=== PATIENT | female | born 1995 | race Caucasian/White ===

== ENCOUNTER 2022-03-13 20:35 | Inpatient (IN) | payer BC, OTHER ==
[~2022-03-13] VITALS: Ht 157.5 cm; Wt 89.4 kg
[2022-03-13] MEDS ORDERED: 0.9%NACL 1000ML 1,000 ML IV ONE (21:00)
[2022-03-13] MEDS ORDERED: ACETYLCYSTEINE IV ONE ×6 (21:00→23:30)
[2022-03-13] MEDS ORDERED: WATER IV ONE ×6 (21:00→23:30)
[2022-03-13] MEDS ORDERED: DEXTROSE 5% IV ONE ×4 (21:00→23:30)
[2022-03-13 21:10] LABS: BASOPHILS % (AUTO) 1.3 % (0.0-5.0); EOSINOPHILS % (AUTO) 0.8 % (0.0-8.0); HEMATOCRIT 46.1 % (36-48); LYMPHOCYTES % (AUTO) 23.6 % (21.0-51.0); MEAN CORPUSCULAR HEMOGLOBIN 32.2 pg (27.0-33.0); MEAN CORPUSCULAR HGB CONC 34.3 g/dL (32.0-36.0); MEAN CORPUSCULAR VOLUME 93.9 fL (79-99); MONOCYTES % (AUTO) 8.4 % (3.0-13.0); NEUTROPHILS % (AUTO) 65.6 % (40.0-77.0); PLATELET COUNT (AUTO) 375 K/uL (130-400); RED BLOOD CELL COUNT(AUTO) 4.91 MIL/uL (4.00-5.50); WHITE BLOOD COUNT (AUTO) 7.2 K/uL (4.8-10.8)
[2022-03-13 21:22] LABS: APPEARANCE,URINE CLEAR (CLEAR); BILIRUBIN,URINE NEGATIVE (NEGATIVE); COLOR,URINE LIGHT-YELLOW (YELLOW); GLUCOSE, URINE (UA) NEGATIVE (NEGATIVE); KETONES,URINE 5 mg/dL (NEGATIVE); LEUKOCYTE ESTERASE ,URINE NEGATIVE Leu/uL (NEGATIVE); NITRATE,URINE NEGATIVE (NEGATIVE); OCCULT BLOOD,URINE NEGATIVE (NEGATIVE); PROTEIN,URINE NEGATIVE (NEGATIVE); UROBILINOGEN,URINE 0.2 mg/dL (0.2-1.0)
[2022-03-13 21:23] LABS: CARBON DIOXIDE 24 mmol/L (21-32); CHLORIDE 102 mmol/L (101-111); CREATININE 0.8 mg/dL (0.5-1.5); GLOMERULAR FILTR. RATE CALC 91 mL/min (>60); GLUCOSE,RANDOM 93 mg/dL (70-105); POTASSIUM 3.3 mmol/L (3.5-5.1); SODIUM SERUM 141 mmol/L (136-145); UREA NITROGEN, BLOOD 11 mg/dL (7-18)
[2022-03-13 21:34] LABS: ALANINE AMINOTRANSFERASE 38 U/L (12-78); ALBUMIN 4.1 g/dL (3.5-5.0); ALCOHOL, BLOOD 196 mg/dL (0-10); ASPARTATE AMINOTRANSFERASE 29 U/L (10-37); CREATINE KINASE, TOTAL 60 U/L (21-232); TOTAL PROTEIN, SERUM 8.3 g/dL (6.0-8.3)
[2022-03-13 21:41] LABS: SALICYLATE < 2.8 mg/dL (2.8-20.0)
[2022-03-13 21:42] LABS: ACETAMINOPHEN 200 mcg/mL (10-30)
[2022-03-13 22:16] LABS: PROTHROMBIN TIME 10.9 SEC (9.6-11.6)
[2022-03-13 22:17] LABS: PARTIAL THROMBOPLASTIN TIME 28.1 SEC (26.3-35.5)
[2022-03-13] MEDS ORDERED: ACETYLCYSTEINE 6000 MG/30 ML IV SCH (22:30)
[2022-03-13] MEDS ORDERED: POTASSIUM CHLORIDE 20MEQ/10ML 10 MEQ in 0.9%NACL 50ML 50 ML IV SCH (22:30)
[2022-03-13] MEDS ORDERED: PHYTONADIONE 10 MG/1 ML AMP SQ ONE (22:30)
[2022-03-13] MEDS ORDERED: ONDANSETRON 4MG INJ ONE (22:38)
[2022-03-13] MEDS ORDERED: PHARMACY COMMUNICATION MISC PRN (23:00)
[2022-03-13] MEDS ORDERED: NITROGLYCERIN 0.4 MG SL TAB SL PRN (23:00)
[2022-03-13] MEDS ORDERED: CHLORDIAZEPOXIDE HCL 25 MG CAP PO PRN ×2 (23:00)
[2022-03-13] MEDS ORDERED: ONDANSETRON 4MG INJ IV PRN (23:00)
[2022-03-13] MEDS ORDERED: ACETAMINOPHEN 325 MG TAB PO PRN ×2 (23:00)
[2022-03-13] MEDS ORDERED: [UNRECOGNIZED DRUG - OTHER] IV STA (23:00)
[2022-03-13] MEDS ORDERED: LORAZEPAM 2 MG/ML 1 ML VIAL IVP PRN ×2 (23:00)
[2022-03-13] MEDS ORDERED: ACETYLCYSTEINE 20% 200MG/ML 30ML VIAL ONE (23:08)
[2022-03-13] MEDS ORDERED: ACETYLCYSTEINE 10% 100MG/ML 4ML VIAL ONE (23:11)
[2022-03-13 23:12] LABS: AMPHET/METH SCREEN,URINE NEGATIVE (NEGATIVE); BARBITURATE SCREEN, URINE NEGATIVE (NEGATIVE); BENZODIAZEPINES SCREEN,URINE NEGATIVE (NEGATIVE); COCAINE SCREEN,URINE NEGATIVE (NEGATIVE); PHENCYCLIDINE SCREEN,URINE NEGATIVE (NEGATIVE)
[2022-03-13 23:14] LABS: CANNABINOID SCREEN,URINE POSITIVE (NEGATIVE)
[2022-03-13] MEDS ORDERED: DEXTROSE 10% IV ONE ×2 (23:30)
[2022-03-13] MEDS: PHARMACY COMMUNICATION MISC SCH (23:30)
[2022-03-13] MEDS ORDERED: PHARMACY COMMUNICATION MISC SCH (23:45)
[2022-03-13] MEDS ORDERED: POTASSIUM CHLORIDE 20MEQ/100ML 0 ML IV ONE (23:47)
[2022-03-13] MEDS ORDERED: POTASSIUM CHLORIDE 10MEQ/100ML 100 ML IV ONE (23:50)
[2022-03-14] MEDS ORDERED: PROMETHAZINE HCL 25 MG/ML 1ML AMPULE IM PRN
[2022-03-14] MEDS ORDERED: 0.9%NACL 1000ML 1,000 ML IV SCH
[2022-03-14] MEDS ORDERED: THIAMINE HCL 100 MG/ML 2ML VIAL ONE (00:09)
[2022-03-14] MEDS ORDERED: M.V.I. IV [ADULT] 10 ML VIAL IV ONE (00:10)
[2022-03-14] MEDS ORDERED: FOLIC ACID 5 MG/ML VIAL ONE (00:11)
[2022-03-14] MEDS: THIAMINE HCL 100 MG, FOLIC ACID 1 MG, M.V.I. IV [ADULT] 10 ML in 0.9%NACL 1000ML 1,000 ML IV SCH ×2 (00:19→22:16)
[2022-03-14] MEDS: 0.9%NACL 1000ML 1,000 ML IV SCH ×2 (01:04→07:33)
[2022-03-14] MEDS: PHARMACY COMMUNICATION MISC SCH ×7 (01:30→13:40)
[2022-03-14] MEDS ORDERED: ACETYLCYSTEINE 20% 200MG/ML 30ML VIAL ONE (02:49)
[2022-03-14] MEDS ORDERED: DEXTROSE 5% IV ONE ×4 (04:00)
[2022-03-14] MEDS ORDERED: ACETYLCYSTEINE IV ONE ×4 (04:00)
[2022-03-14] MEDS ORDERED: WATER IV ONE ×4 (04:00)
[2022-03-14 06:34] LABS: BASOPHILS % (AUTO) 0.7 % (0.0-5.0); EOSINOPHILS % (AUTO) 0.1 % (0.0-8.0); HEMATOCRIT 37.4 % (36-48); LYMPHOCYTES % (AUTO) 7.2 % (21.0-51.0); MEAN CORPUSCULAR HGB CONC 33.4 g/dL (32.0-36.0); MEAN CORPUSCULAR VOLUME 95.7 fL (79-99); MONOCYTES % (AUTO) 5.2 % (3.0-13.0); NEUTROPHILS % (AUTO) 86.5 % (40.0-77.0); PLATELET COUNT (AUTO) 270 K/uL (130-400); RED BLOOD CELL COUNT(AUTO) 3.91 MIL/uL (4.00-5.50); WHITE BLOOD COUNT (AUTO) 11.5 K/uL (4.8-10.8)
[2022-03-14 07:04] LABS: ALBUMIN 2.7 g/dL (3.5-5.0); CREATININE 0.6 mg/dL (0.5-1.5); MAGNESIUM 1.5 mg/dL (1.80-2.40); PHOSPHORUS 3.4 mg/dL (2.5-4.9); POTASSIUM 3.7 mmol/L (3.5-5.1)
[2022-03-14 07:27] LABS: INR 1.08 (0.85-1.15); PROTHROMBIN TIME 11.7 SEC (9.6-11.6)
[2022-03-14 07:29] LABS: PARTIAL THROMBOPLASTIN TIME 27.8 SEC (26.3-35.5)
[2022-03-14] MEDS: FAMOTIDINE 20MG TAB PO SCH ×2 (08:55→20:19)
[2022-03-14] MEDS: ENOXAPARIN SODIUM 40 MG/0.4 ML SYRINGE SQ SCH (08:55)
[2022-03-14 13:32] LABS: ALBUMIN 2.8 g/dL (3.5-5.0); CREATININE 0.7 mg/dL (0.5-1.5); MAGNESIUM 1.4 mg/dL (1.80-2.40); POTASSIUM 3.2 mmol/L (3.5-5.1); TOTAL PROTEIN, SERUM 6.1 g/dL (6.0-8.3)
[2022-03-14 13:44] LABS: HEMOGLOBIN A1C 5.2 % (4.0-6.0)
[2022-03-14] MEDS ORDERED: CETI10TA87 PO (16:32)
[2022-03-14 16:56] VITALS: BP 147/97
[2022-03-14] MEDS ORDERED: HYDROXYZINE 25 MG TABLET PO PRN (17:00)
[2022-03-14 17:14] LABS: INR 1.01 (0.85-1.15)
[2022-03-14 17:15] LABS: PARTIAL THROMBOPLASTIN TIME 30.3 SEC (26.3-35.5)
[2022-03-14 17:30] LABS: ALANINE AMINOTRANSFERASE 25 U/L (12-78); ASPARTATE AMINOTRANSFERASE 18 U/L (10-37); CARBON DIOXIDE 20 mmol/L (21-32); CHLORIDE 106 mmol/L (101-111); CREATININE 0.7 mg/dL (0.5-1.5); GLOMERULAR FILTR. RATE CALC 107 mL/min (>60); GLUCOSE,RANDOM 84 mg/dL (70-105); POTASSIUM 3.2 mmol/L (3.5-5.1); SODIUM SERUM 137 mmol/L (136-145); TOTAL PROTEIN, SERUM 6.3 g/dL (6.0-8.3); UREA NITROGEN, BLOOD 7 mg/dL (7-18)
[2022-03-14 17:33] LABS: ACETAMINOPHEN < 1 mcg/mL (10-30)
[2022-03-14] MEDS ORDERED: POTASSIUM CHLORIDE 10% ELIXIR 20 MEQ/15 ML UDCUP PO PRN (18:00)
[2022-03-14] MEDS ORDERED: POTASSIUM CHLORIDE 20MEQ/100ML 100 ML IV PRN (18:00)
[2022-03-14] MEDS: KCL 20 MEQ ERTAB PO PRN ×3 (18:00→22:13)
[2022-03-14] MEDS ORDERED: MAGNESIUM 2GM PREMIX 50ML 50 ML IV PRN (18:00)
[2022-03-14 20:15] VITALS: BP 156/92
[2022-03-14] MEDS: TRAZODONE HCL 50 MG TAB PO SCH (20:19)
[2022-03-15 00:04] VITALS: BP 142/89
[2022-03-15 03:41] VITALS: BP 137/94
[2022-03-15 03:47] LABS: ALBUMIN 2.9 g/dL (3.5-5.0); CREATININE 0.6 mg/dL (0.5-1.5); MAGNESIUM 2.1 mg/dL (1.80-2.40); POTASSIUM 3.6 mmol/L (3.5-5.1); TOTAL PROTEIN, SERUM 6.1 g/dL (6.0-8.3)
[2022-03-15] MEDS: KCL 20 MEQ ERTAB PO PRN ×2 (06:07→18:46)
[2022-03-15 08:15] LABS: BASOPHILS % (AUTO) 0.4 % (0.0-5.0); EOSINOPHILS % (AUTO) 1.3 % (0.0-8.0); HEMATOCRIT 36.6 % (36-48); LYMPHOCYTES % (AUTO) 12.6 % (21.0-51.0); MEAN CORPUSCULAR HEMOGLOBIN 32.1 pg (27.0-33.0); MEAN CORPUSCULAR HGB CONC 33.1 g/dL (32.0-36.0); MEAN CORPUSCULAR VOLUME 97.1 fL (79-99); MONOCYTES % (AUTO) 7.8 % (3.0-13.0); NEUTROPHILS % (AUTO) 77.6 % (40.0-77.0); PLATELET COUNT (AUTO) 233 K/uL (130-400); RED BLOOD CELL COUNT(AUTO) 3.77 MIL/uL (4.00-5.50); RED CELL DISTRIBUTION WIDTH 12.9 % (11.0-15.5)
[2022-03-15 08:30] VITALS: BP 132/83
[2022-03-15] MEDS: PAROXETINE HCL 20 MG TABLET PO SCH (09:39)
[2022-03-15] MEDS: FAMOTIDINE 20MG TAB PO SCH ×2 (09:39→20:39)
[2022-03-15] MEDS: ENOXAPARIN SODIUM 40 MG/0.4 ML SYRINGE SQ SCH (09:40)
[2022-03-15 12:00] VITALS: BP 131/83
[2022-03-15 16:31] VITALS: BP 128/94
[2022-03-15] MEDS: PHARMACY COMMUNICATION MISC SCH ×3 (19:15→23:30)
[2022-03-15 20:00] VITALS: BP 148/95
[2022-03-15] MEDS: TRAZODONE HCL 50 MG TAB PO SCH (20:39)
[2022-03-15] MEDS: THIAMINE HCL 100 MG, FOLIC ACID 1 MG, M.V.I. IV [ADULT] 10 ML in 0.9%NACL 1000ML 1,000 ML IV SCH ×2 (22:20→23:35)
[2022-03-16] MEDS: PHARMACY COMMUNICATION MISC SCH ×8 (01:30→15:30)
[2022-03-16 01:47] VITALS: BP 149/84
[2022-03-16 04:00] VITALS: BP 145/87
[2022-03-16 04:54] LABS: ALBUMIN 2.8 g/dL (3.5-5.0); CREATININE 0.6 mg/dL (0.5-1.5); POTASSIUM 3.4 mmol/L (3.5-5.1); TOTAL PROTEIN, SERUM 6.3 g/dL (6.0-8.3)
[2022-03-16 04:56] LABS: INR 0.93 (0.85-1.15)
[2022-03-16] MEDS: KCL 20 MEQ ERTAB PO PRN ×2 (05:20→08:38)
[2022-03-16 08:00] VITALS: BP 130/81
[2022-03-16] MEDS: PAROXETINE HCL 20 MG TABLET PO SCH (08:37)
[2022-03-16] MEDS: FAMOTIDINE 20MG TAB PO SCH (08:37)
[2022-03-16] MEDS: ENOXAPARIN SODIUM 40 MG/0.4 ML SYRINGE SQ SCH (08:37)
[2022-03-16 12:00] VITALS: BP 142/96
== END 2022-03-16 17:33 | DRG 918 ==
LOC: EDH 20:35 → EDHIP 22:46 → 2AH 03-14 14:23
PROVIDERS: ADMIT Internal Medicine; ATTEND Internal Medicine
DX: T39.1X2A Poisoning by 4-Aminophenol derivatives, intentional self-harm, initial encounter (principal); E87.6 Hypokalemia; Z20.822 Contact with and (suspected) exposure to COVID-19; F10.129 Alcohol abuse with intoxication, unspecified; F12.10 Cannabis abuse, uncomplicated; F43.22 Adjustment disorder with anxiety; F32.A Depression, unspecified; F60.9 Personality disorder, unspecified; E66.9 Obesity, unspecified; F39 Unspecified mood [affective] disorder; J45.909 Unspecified asthma, uncomplicated; Z68.36 Body mass index [BMI] 36.0-36.9, adult; Y92.89 Other specified places as the place of occurrence of the external cause
CPT/HCPCS: 36415; 71045; 80053; 80305; 81003; 82550; 83036; 83605; 83735; 84100; 84132; 84484; 84703; 85025; 85610; 85730; 87635; 93005; 99291; G0378; G0481; J0132; J1650; J2405; J3411; J3430; J3475; J3480; J3490; J7030; J7060; J7070; J7608